=== PATIENT | male | born 1975 | race Caucasian/White ===

== ENCOUNTER 2017-01-12 10:37 | Outpatient (CLI) | payer BC ==
[2017-01-12 12:37] LABS: Hemoglobin A1c 7.9 % (4.0-6.0)
== END 2017-01-12 10:38 | disposition home or self-care (01) ==
LOC: NAVSJIPCSP 10:37
PROVIDERS: ATTEND Internal Medicine
DX: E78.5 Hyperlipidemia, unspecified (principal); E11.65 Type 2 diabetes mellitus with hyperglycemia
CPT/HCPCS: 36415; 80061; 83036

== ENCOUNTER 2017-05-15 09:48 | Outpatient (CLI) | payer BC ==
[2017-05-15 11:39] LABS: Hemoglobin A1c 8.8 % (4.0-6.0)
== END 2017-05-15 09:49 | disposition home or self-care (01) ==
LOC: NAVSJIPCSP 09:48
PROVIDERS: ATTEND Internal Medicine
DX: E11.9 Type 2 diabetes mellitus without complications (principal); E78.5 Hyperlipidemia, unspecified; I11.9 Hypertensive heart disease without heart failure
CPT/HCPCS: 36415; 80061; 83036

== ENCOUNTER 2019-12-19 11:41 | Outpatient (CLI) | payer BC ==
--- NOTE | 2019-12-19 12:10 | RAD ---
Exam: XR Elbow Rt 4 View STANDARD HISTORY: Mass lateral right elbow appear COMPARISON: None FINDINGS: No osseous destruction is seen. There are no findings based on this radiograph to suggest a joint eff usion. No acute fracture, dislocation, or other acute osseous abnormality is identified. IMPRESSION: No acute osseous abnormality is seen. MRI right elbow would be helpful for further evaluation given p alpable abnormality/mass noted on clinical examination.
== END 2019-12-19 11:42 | disposition home or self-care (01) ==
LOC: NAV RAD 11:41
PROVIDERS: ATTEND Internal Medicine
DX: R22.31 Localized swelling, mass and lump, right upper limb (principal)